=== PATIENT | female | born 1955 | race Caucasian/White ===

== ENCOUNTER → 2016-04-10 | Outpatient (CLI) | payer OTHER | LOC: FIMAGING 07:32 | PROVIDERS: ATTEND Physical Medicine & Rehabilitation | DX: M51.36 Other intervertebral disc degeneration, lumbar region (principal) ==

== ENCOUNTER 2016-06-22 05:54 | Day surgery (SDC) | payer OTHER ==
[2016-06-22] MEDS ORDERED: LIDOCAINE 1% 2 ML INJ ONE (06:23)
[2016-06-22] MEDS ORDERED: LR 1,000 ML IV ONE (06:30)
[2016-06-22] MEDS ORDERED: CHLORHEXIDINE GLUC HIBICLENS 118 ML BTL TP ONE (06:30)
[2016-06-22] MEDS ORDERED: LIDOCAINE 1% 5 ML SDV ID PRN (06:30)
[2016-06-22] MEDS ORDERED: ceFAZolin 2 GM/DEXTROSE 100 ML IV ONE (06:30)
[2016-06-22] MEDS ORDERED: DEPO METHYLPREDNISOLONE 40 MG/ML SDV ONE (07:13)
[2016-06-22] MEDS ORDERED: BUPIVACAINE/EPI 0.25% 30 ML SDV ONE (07:13)
[2016-06-22] MEDS ORDERED: THROMBIN (BOVINE) 5,000 UNIT VIAL TP ONE (07:13)
[2016-06-22] MEDS ORDERED: BACITRACIN 50,000 UNITS/10 ML SYR IRR ONE ×2 (07:15→07:34)
[2016-06-22] MEDS ORDERED: MIDAZOLAM 2 MG/2 ML VIAL ONE (07:19)
[2016-06-22] MEDS ORDERED: PROPOFOL 200 MG/20 ML VIAL ONE (07:30)
[2016-06-22] MEDS ORDERED: fentaNYL 250 MCG/5 ML INJ ONE (07:30)
[2016-06-22] MEDS ORDERED: ONDANSETRON 4 MG/2 ML VIAL ONE (07:32)
[2016-06-22] MEDS ORDERED: SUCCINYLCHOLINE CHLORIDE*ANESTHESIA ONLY*200 MG/10 ML SYR IVP ONE (07:32)
[2016-06-22] MEDS ORDERED: DEXAMETHASONE 4 MG/ML VIAL ONE ×2 (07:32)
[2016-06-22] MEDS ORDERED: LIDOCAINE 2% 5 ML SDV ONE (07:32)
[2016-06-22] MEDS ORDERED: PHENYLEPHRINE HCL 100 MCG/ML SYR ONE (08:19)
[2016-06-22] MEDS ORDERED: epHEDrine SULFATE 10 MG/ML SYR ONE (09:20)
[2016-06-22] MEDS ORDERED: HYDROmorphONE/DILAUDID 1 MG/ML SYR ONE (10:15)
[2016-06-22] MEDS ORDERED: KETOROLAC 30 MG/1 ML SDV ONE (11:20)
[2016-06-22] MEDS ORDERED: KETOROLAC 30 MG/1 ML SDV IVP ONE (11:30)
--- NOTE | 2016-06-22 11:32 | GOP ---
[f rep st] OPERATIVE REPORT DATE OF OPERATION: 06/22/2016 SURGEON: Gunnar Wolfe MD CORPORATE STRATEGY ANALYST: Michel Tian PA-C. PREOPERATIVE DIAGNOSIS: Herniated disk, left L4-5; mild spondylolisthesis, L3-4, with moderate sten osis at L3-4; left L5 radiculopathy with numbness and discomfort. POSTOPERATIVE DIAGNOSIS: Herniated disk, left L4-5; mild spondylolisthesis, L3-4, with moderate albertina nosis at L3-4; left L5 radiculopathy with numbness and discomfort. PROCEDURE PERFORMED: Left L4-5 hemilaminotomy, medial facetectomy and a left L4-5 microdiskectomy. ([id number]), microscope. FINDINGS: ESTIMATED BLOOD LOSS: 100 cc. INDICATIONS: The patient is a 61-year old with left L5 radiculopathy whose pain had subsided slight ly in the left leg but she had persistent numbness and tingling and it was quite bothersome to her. An MRI demonstrated a large left free fragment inferior extrusion at L4-5 compressing the left L5 r oot adjacent to the L5 pedicle. I suggested a microdiskectomy. The risk of recurrent disk herniati on, including the 10% chance of a recurrent disk herniation requiring more surgery was discussed, th ere was a risk of CSF leak and infection and she wanted to proceed. DESCRIPTION OF PROCEDURE: The patient was taken to the operating room and placed in supine position . General anesthesia was begun. She was flipped prone onto the Tremaine frame. Care was taken to pa d all points of contact. Her back was sterilely prepped and draped in usual fashion. A localizing x-ray was taken. A 15 mm incision was made above the L4-5 interspace. The subcutaneous tissue was dissected using Bovie cautery down through the fascia and a subperiosteal dissection was made down t he left L4-5 lamina. Self-retaining retractor was placed. A localizing x-ray was taken once again. We drilled a minimal left L4 laminotomy and removed the rostral aspect of the L5 arch, preserving the L5 pars interarticularis. Our laminotomy was somewhat lower than it would be for just a simple microdiskectomy as we were going after the inferior extrusion. The L5 nerve root was localized, and under the microscope, we mobilized the L5 nerve root and underneath the nerve root was scarred and disk protrusion. It took time to separate the nerve from this underlying disk material and we spent considerable time sweeping under the thecal sac and the L5 root, and we worked our way all the way into the L5-S1 foramen below the pedicle. A localizing x-ray was taken confirming our location at L 4-5 and adjacent to the L5 pedicle. We incised the inferior portion of the L4-5 disk where there wa s an annular defect and removed some annular fragments as well. We did not perform an aggressive mi crodiskectomy. We irrigated with antibiotic saline, placed a little Depo-Medrol with a little bit o f Marcaine over the left L5 nerve root and we then closed the incision in multiple layers using Vicr yl sutures. A running PDS was placed in the skin itself. There were no complications. COMPLICATIONS: None. /[id number]/MODL
[2016-06-22] MEDS ORDERED: HYDROCODONE/APAP 5/325 TAB ONE (11:46)
== END 2016-06-22 12:50 | disposition home or self-care (01) ==
LOC: FSGY 05:54 → EDSTATUS 07:30 → FSGY 12:50
PROVIDERS: ATTEND Neurological Surgery
DX: M51.16 Intervertebral disc disorders with radiculopathy, lumbar region (principal); M43.16 Spondylolisthesis, lumbar region; M21.372 Foot drop, left foot
CPT/HCPCS: J0330; J0690; J1030; J1100; J1170; J1885; J2250; J2370; J2405; J2704; J3010

== ENCOUNTER → 2018-02-02 | Outpatient (CLI) | payer OTHER | END | disposition home or self-care (01) | LOC: FIMAGING 16:19 | PROVIDERS: ATTEND Internal Medicine Pulmonary Disease | DX: R06.09 Other forms of dyspnea (principal); R93.89 Abnormal findings on diagnostic imaging of other specified body structures; Q67.6 Pectus excavatum ==

== ENCOUNTER → 2018-04-07 | Outpatient (CLI) | payer OTHER | LOC: FIMAGING 11:06 | PROVIDERS: ATTEND Internal Medicine | DX: Z12.31 Encounter for screening mammogram for malignant neoplasm of breast (principal) ==

== ENCOUNTER → 2018-05-23 | Outpatient (CLI) | payer OTHER | LOC: FIMAGING 19:33 | PROVIDERS: ATTEND Physician Assistant Medical | DX: M48.061 Spinal stenosis, lumbar region without neurogenic claudication (principal); M51.26 Other intervertebral disc displacement, lumbar region ==